=== PATIENT | male | born 1990 | race Caucasian/White ===

== ENCOUNTER 2023-03-23 18:25 | Emergency (ER) | payer OTHER ==
[2023-03-23 18:37] VITALS: BP 150/90; O2SAT 97
--- NOTE | 2023-03-23 18:48 | ED Physician Documentation ---
History of Present Illness - Stated complaint Stated Complaint: POSSIBLY SWALLOWED CERAMIC - Chief complaint Chief Complaint: Heent - History obtained from History obtained from: Patient - Additonal information Additional information: 32-year-old male presents after possibly swallowing a piece of a ceramic bowl. The patient states that his daughter accidentally broke a bowl and then at some point later he found a piece of the ceramic in his mouth and then put all the pieces of the ceramic ball back together and noticed a piece was missing and thought perhaps that he had swallowed it. He does not have any shortness of breath, no difficulty breathing, no abdominal pain nausea vomiting diarrhea or constipation. PD PAST MEDICAL HISTORY - Past Medical History Past Medical History: No Cardiovascular: None Respiratory: None Neuro: None Endocrine/Autoimmune: None GI: None : None HEENT: None Psych: None Musculoskeletal: None Derm: None - Past Surgical History HEENT: Tonsil/Adenoidectomy - Allergies Allergies/Adverse Reactions: Allergies Allergy/AdvReac Type Severity Reaction Status Date / Time Sulfa (Sulfonamide Allergy Hives Verified 03/23/23 18:29 Antibiotics) - Social History Does the pt smoke?: No Smoking Status: Never smoker Does the pt drink ETOH?: Yes ETOH Use: Beer Does the pt have substance abuse?: No - Immunizations Immunizations are current?: Yes - POLST Patient has POLST: No PD ED PE NORMAL - Vitals Vital signs reviewed: Yes - General General: Alert and oriented X 3, No acute distress, Well developed/nourished - HEENT HEENT: Atraumatic, Moist mucous membranes, Pharynx benign - Neck Neck: Supple, no meningeal sign, Other (No stridor) - Cardiac Cardiac: RRR, No murmur - Respiratory Respiratory: No respiratory distress, Clear bilaterally - Abdomen Abdomen: Normal bowel sounds, Soft, Non tender, Non distended - Derm Derm: Normal color, Warm and dry Results - Vitals Vitals: Vital Signs - 24 hr 03/23/23 18:29 Temperature 36.6 C Heart Rate 88 Respiratory 16 Rate Blood Pressure 150/90 H O2 Saturation 97 Oxygen O2 Source Room air - Rads (name of study) No standard instances Relevant Findings:: Prelim report reviewed PD Medical Decision Making - ED course Complexity details: reviewed results, re-evaluated patient, considered differential, d/w patient ED course: 32-year-old male presenting after possibly swallowing or inhaling a piece of a ceramic bowl after it was broken next to him. He is not having any symptoms at this time. We obtained an x-ray of the chest and abdomen which were negative. Patient was visit if you did not did swallow and we cannot see it, it should pass through his GI tract without difficulty. I do not anticipate any perforation with this though if he developed any symptoms in the future he should return to the ER. Departure - Departure Instructions: ED Foreign Body Swallowed Adult Forms: PCP List
--- NOTE | 2023-03-23 19:59 | XRAY Report ---
PROCEDURE: Chest 1 View X-Ray INDICATIONS: chest pain TECHNIQUE: One view of the chest was acquired. COMPARISON: None. FINDINGS: Surgical changes and devices: None. Lungs and pleura: No pleural effusions or pneumothorax. Lungs are clear. Mediastinum: Mediastinal contours appear normal. Heart size is normal. Bones and chest wall: No suspicious bony lesions. Overlying soft tissues appear unremarkable. IMPRESSION: No acute cardiopulmonary process. No radiopaque foreign bodies are seen. Reviewed by: Janak Nevarez MD on 03/23/2023 7:58 PM PDT Approved by: Janak Nevarez MD on 03/23/2023 7:58 PM PDT Station ID: [id number]
--- NOTE | 2023-03-23 20:01 | XRAY Report ---
PROCEDURE: Abdomen 1 View X-Ray INDICATIONS: possibly swallowed a piece of ceramic TECHNIQUE: One view of the abdomen acquired. COMPARISON: None. FINDINGS: Surgical changes and devices: None. Bowel: Bowel gas pattern is normal. Soft tissues: No suspicious abdominal calcifications. Hyperdensity projecting over the right lower q uadrant acetabulum. Visualized solid organ contours appear normal in size. Bones: No suspicious bony lesions. IMPRESSION: Hyperdensity projecting over the right lower quadrant/acetabulum, may represent ingested foreign body . Reviewed by: Janak Nevarez MD on 03/23/2023 8:00 PM PDT Approved by: Janak Nevarez MD on 03/23/2023 8:00 PM PDT Station ID: [id number]
== END 2023-03-23 19:38 | disposition home or self-care (01) ==
LOC: ED 18:25
DX: T18.0XXA Foreign body in mouth, initial encounter (principal); W44.C0XA Glass unspecified, entering into or through a natural orifice, initial encounter
CPT/HCPCS: 99283